=== PATIENT | female | born 1975 | race Caucasian/White ===

== ENCOUNTER 2018-07-13 20:16 | Emergency (ER) | payer SELFPAY ==
[~2018-07-13] VITALS: Ht 157.5 cm; Wt 117.9 kg
--- NOTE | 2018-07-13 20:35 | ED Respiratory ---
General Stated Complaint: SOA Source: patient, family (and sister) Exam Limitations: no limitations (ELIJAH SANTIAGO) History of Present Illness Date Seen by Provider: Jul 13, 2018 Time Seen by Provider: 20:25 Initial Comments The patient presents to ER by private conveyance with chief complaint of shortness of breath and wheezing. She has a history of asthma for which she intermittently uses her Ventolin inhaler. Today she used 4 times after her symptoms started in the last hour. Both of her 2 children have some upper respiratory viral symptoms. No one has been diagnosed with influenza. She's had no fevers chills nausea vomiting chest pain, diarrhea or constipation. She had her last menstrual period 2 weeks ago. Her ears do not feel full or underwater. Her throat is not sore. (ELIJAH SANTIAGO) Allergies and Home Medications Allergies Coded Allergies: azithromycin (Verified Adverse Reaction, Unknown, nausea vomiting, 07/13/18) vancomycin (Verified Adverse Reaction, Unknown, heart racing, 07/13/18) Home Medications Albuterol Sulfate 1 Puff Puff, 2 PUFF IH Q4H 1 PUFF = 90 MCG Prescribed by: SHANTA HILL on 07/13/182305 Benzonatate 100 Mg Capsule, 100 MG PO TID PRN for COUGH Prescribed by: SHANTA HILL on 07/13/182305 Prednisone 20 Mg Tab, 60 MG PO DAILY Prescribed by: SHANTA HILL on 07/13/182305 Patient Home Medication List Home Medication List Reviewed: Yes (SHANTA HILL DO) Review of Systems Review of Systems Constitutional: No fever EENTM: nose congestion Respiratory: cough, dyspnea on exertion, wheezing Cardiovascular: No chest pain (SHANTA HILL DO) Past Hhdxwcj-Mvzkqe-Rfwtwd Hx Patient Social History Recent Foreign Travel: No Contact w/Someone Who Travel: No (ELIJAH SANTIAGO) Physical Exam Vital Signs - First Documented 07/13/18 20:29 Temp 97.8 Pulse 98 Resp 16 B/P (MAP) 126/96 (106) Pulse Ox 99 (SHANTA HILL DO) Capillary Refill : (ELIJAH SANTIAGO) Height: '" Weight: lbs. oz. kg; BMI Method: (ELIJAH SANTIAGO) General Appearance: no apparent distress Respiratory: No respiratory distress, No decreased breath sounds, No accessory muscle use; wheezing Cardiovascular: normal peripheral pulses (SHANTA HILL DO) Progress/Results/Core Measures Suspected Sepsis SIRS Temperature: Pulse: Respiratory Rate: Blood Pressure / Mean: (ELIJAH SANTIAGO) Results/Orders My Orders Orders - SHANTA HILL DO Benzonatate Capsule (Tessalon Perles) (07/13/18 22:00) Prednisone Tablet (Deltasone Tablet) (07/13/18 22:00) Ibuprofen Tablet (Motrin Tablet) (07/13/18 22:00) Hydrocodone/Apap 5/325 Tablet (Lortab 5 (07/13/18 22:00) Albuterol/Ipra Inhalation Soln (Duoneb I (07/13/18 22:00) Svn Small Volume Nebulizer (07/13/18 21:46) (SHANTA HILL DO) Medications Given in ED Current Medications Medications Dose Ordered Sig/Jose Luis Route Start Time Stop Time Status Last Admin Dose Admin Acetaminophen/ Hydrocodone Bitart 1 tab ONCE ONCE PO 07/13/18 22:00 07/13/18 22:01 DC 07/13/18 22:07 1 TAB Albuterol/ Ipratropium 3 ml ONCE ONCE INH 07/13/18 20:45 07/13/18 20:46 DC 07/13/18 20:39 3 ML Ibuprofen 600 mg ONCE ONCE PO 07/13/18 22:00 07/13/18 22:01 DC 07/13/18 22:07 600 MG Prednisone 60 mg ONCE ONCE PO 07/13/18 22:00 07/13/18 22:01 DC 07/13/18 22:07 60 MG (SHANTA HILL DO) Vital Signs/I&O 07/13/18 20:29 Temp 97.8 Pulse 98 Resp 16 B/P (MAP) 126/96 (106) Pulse Ox 99 (SHANTA HILL DO) Vital Signs/I&O Capillary Refill : (ELIJAH SANTIAGO) Progress Note : Progress Note Patient's with persistent wheezing on my examination sided another breathing treatment in addition to steroids Tessalon ibuprofen Burtrum for her rib pain. On reexamination sure aeration of her lungs is much improved and she is breathing with no respiratory distress at all. Repeat vital signs are normal as well. Given patient appears well. Vital signs: Physical exam workup she will be discharged in stable condition. Follow up primary care provider within 2 days and come back to the ED sooner if worsening pain shortness of breath with additional concerns. (SHANTA HILL DO) Transfer of Care Transfer of Care Time: 21:16 Care transferred to: Emily (ELIJAH SANTIAGO) Departure Impression Primary Impression: Asthma exacerbation Disposition: 01 HOME, SELF-CARE Condition: Stable Departure-Patient Inst. Decision time for Depature: 23:04 (SHANTA HILL DO) Scripts Albuterol Sulfate (PROAIR HFA) 1 Puff Puff 2 PUFF IH Q4H, #1 INHALER 1 PUFF = 90 MCG Prov: SHANTA HILL DO 07/13/18 Prednisone (Prednisone) 20 Mg Tab 60 MG PO DAILY for 4 Days, #4 TAB 0 Refills Prov: SHANTA HILL DO 07/13/18 Benzonatate (TESSALON PERLES) 100 Mg Capsule 100 MG PO TID PRN for COUGH, #15 CAP Prov: SHANTA HILL DO 07/13/18 ELIJAH SANTIAGO Jul 13, 2018 20:35 SHANTA HILL DO Jul 13, 2018 23:04
[2018-07-13] MEDS ORDERED: RT-ALBUTEROL/IPRATROPIUM 3 ML (DUONEB) VIAL INH ONE ×2 (20:45→22:00)
[2018-07-13] MEDS ORDERED: IBUPROFEN 600 MG (MOTRIN) TAB PO ONE (22:00)
[2018-07-13] MEDS ORDERED: predniSONE 20 MG TAB PO ONE (22:00)
[2018-07-13] MEDS ORDERED: HYDROcodone/APAP 5 MG/325 MG (LORTAB) TAB PO ONE (22:00)
[2018-07-13] MEDS ORDERED: BENZONATATE 100 MG (TESSALON) CAPSULE PO SCH (22:00)
[2018-07-13] MEDS ORDERED: RT-ALBUINH IH (23:06)
[2018-07-13] MEDS ORDERED: PRD20T PO (23:06)
[2018-07-13] MEDS ORDERED: BENZ100C18 PO (23:06)
[2018-07-13 23:19] VITALS: BP 130/88
== END 2018-07-13 23:19 | disposition home or self-care (01) ==
LOC: ER FS 20:22
DX: J45.901 Unspecified asthma with (acute) exacerbation (principal); Z88.1 Allergy status to other antibiotic agents; Z79.51 Long term (current) use of inhaled steroids; Z79.52 Long term (current) use of systemic steroids

== ENCOUNTER 2019-10-28 19:39 | Emergency (ER) | payer SELFPAY ==
[~2019-10-28] VITALS: Ht 157 cm; Wt 124.0 kg
[~2019-10-28 19:39] MED LIST: BENZ100C18 PO; PRD20T PO; RT-ALBUINH IH
--- NOTE | 2019-10-28 19:58 | ED Upper Extremity ---
General Chief Complaint: Upper Extremity Stated Complaint: NECK/SHOULDER/ARM PAIN,FALL Source: patient, RN/MD, RN notes reviewed Exam Limitations: no limitations History of Present Illness Date Seen by Provider: Oct 28, 2019 Time Seen by Provider: 19:50 Initial Comments This patient is a 44-year-old female presents to the emergency department with right shoulder pain hurting up into her neck. Patient states she had a fall yesterday tripped over her dog and arm bent back and popped. Patient states ever since that she's been having significant pain in her trapezius muscle to her right shoulder. Patient states very uncomfortable. We'll do medical evaluation treatment is needed Onset: yesterday Pain/Injury Location: right shoulder Method of Injury: fell Modifying Factors: Improves With Movement Allergies and Home Medications Allergies Coded Allergies: morphine (Verified Allergy, Unknown, 10/28/19) azithromycin (Verified Adverse Reaction, Unknown, nausea vomiting, 07/13/18) vancomycin (Verified Adverse Reaction, Unknown, heart racing, 07/13/18) Home Medications Albuterol Sulfate 1 Puff Puff, 2 PUFF IH Q4H 1 PUFF = 90 MCG Prescribed by: SHANTA HILL on 07/13/182305 Benzonatate 100 Mg Capsule, 100 MG PO TID PRN for COUGH Prescribed by: SHANTA HILL on 07/13/182305 Prednisone 20 Mg Tab, 60 MG PO DAILY Prescribed by: SHANTA HILL on 07/13/182305 Patient Home Medication List Home Medication List Reviewed: Yes Review of Systems Constitutional: No no symptoms reported, No see HPI, No chills, No diaphoresis, No dizziness, No fever, No malaise, No weakness, No weight gain, No weight loss, No other EENTM: No see HPI, No no symptoms reported, No ear discharge, No hearing loss, No ear pain, No blurred vision, No double vision, No eye pain, No tearing, No vision loss, No dental problems, No hoarseness, No mouth pain, No mouth swelling, No epistaxis, No nose congestion, No nose pain, No throat pain, No throat swelling, No other Respiratory: No no symptoms reported, No see HPI, No cough, No dyspnea on exertion, No hemoptysis, No orthopnea, No phlegm, No short of breath, No stridor, No wheezing, No other Cardiovascular: No no symptoms reported, No see HPI, No chest pain, No edema, No Hx of Intervention, No palpitations, No syncope, No vascular heart diseas, No other Gastrointestinal: No RUQ, No LUQ, No RLQ, No LLQ, No no symptoms reported, No see HPI, No abdominal pain, No constipation, No diarrhea, No dysphagia, No hematemesis, No heartburn, No jaundice, No loss of appetite, No melena, No nausea, No vomiting, No other Musculoskeletal: No no symptoms reported; see HPI; No back pain, No gout; joint pain; No joint swelling; muscle pain, muscle stiffness; No muscle cramps, No muscle twitching, No muscle weakness, No neck pain, No other Skin: No no symptoms reported, No see HPI, No change in color, No change in hair/nails, No dryness, No hx of skin cancer, No lesions, No lumps, No pruritus, No rash, No other All Other Systems Reviewed Negative Unless Noted: Yes Past Gjfevyd-Sxcdfz-Szahjs Hx Patient Social History Alcohol Use: Denies Use Recreational Drug Use: No Smoking Status: Former Smoker 2nd Hand Smoke Exposure: No Recent Foreign Travel: No Contact w/Someone Who Travel: No Recent Hopitalizations: No Physical Abuse: No Sexual Abuse: No Past Medical History Surgeries: Yes Appendectomy, Cardiac, Gallbladder, Tubal Ligation Respiratory: No Cardiac: No Neurological: No Genitourinary: No Gastrointestinal: No Musculoskeletal: No Endocrine: Yes Diabetes, Non-Insulin dep HEENT: No Cancer: No Psychosocial: No Integumentary: No Blood Disorders: No Physical Exam Vital Signs Vital Signs - First Documented 10/28/19 19:42 Temp 36.9 Pulse 99 Resp 16 Pulse Ox 98 O2 Delivery Room Air Capillary Refill : Height, Weight, BMI Height: 5'2.00" Weight: 260lbs. oz. 117.220856cm; BMI Method:Stated General Appearance: WD/WN, no apparent distress HEENT: PERRL/EOMI, normal ENT inspection, TMs normal, pharynx normal Neck: non-tender, full range of motion, supple, normal inspection Cardiovascular: normal peripheral pulses, regular rate, rhythm, no edema, no gallop, no JVD, no murmur Respiratory: chest non-tender, lungs clear, normal breath sounds, no respiratory distress, no accessory muscle use Back: normal inspection, no CVA tenderness, no vertebral tenderness, CVA tenderness (R), CVA tenderness (L) Shoulder: limited ROM, pain Skin: normal color, warm/dry Progress/Results/Core Measures Results/Orders My Orders Orders - POLINA MONROE MD Shoulder 3 View Right (10/28/19 19:54) Orphenadrine Inj (Ed Only) (Norflex Inje (10/28/19 20:00) Medications Given in ED Current Medications Medications Dose Ordered Sig/Jose Luis Route Start Time Stop Time Status Last Admin Dose Admin Orphenadrine Citrate 60 mg ONCE ONCE IM 10/28/19 20:00 10/28/19 20:01 DC 10/28/19 20:18 60 MG Vital Signs/I&O 10/28/19 19:42 Temp 36.9 Pulse 99 Resp 16 B/P (MAP) Pulse Ox 98 O2 Delivery Room Air Progress Progress Note : Time: 20:24 Progress Note Negative evaluation by x-ray. Patient was given a shot of 60 mg of Norflex. Did discuss at length with patient about muscle spasm in her trapezius muscle. Patient is to alternate heat and ice, Motrin as needed for pain we'll give prescription of Flexeril for the next 2-3 days. Follow-up with PCP in 2-3 days if not improved. Departure Impression Primary Impression: Muscle spasm Disposition: HOME, SELF-CARE Condition: Stable Departure-Patient Inst. Decision time for Depature: 20:25 Referrals: NO,LOCAL PHYSICIAN (PCP) Primary Care Physician Patient Instructions: Muscle Strain (DC) Add. Discharge Instructions: Patient is to alternate heat and ice, Motrin as needed for pain we'll give prescription of Flexeril for the next 2-3 days. Follow-up with PCP in 2-3 days if not improved. All discharge instructions reviewed with patient and/or family. Voiced understanding. Scripts Cyclobenzaprine HCl (Cyclobenzaprine HCl) 10 Mg Tablet 10 MG PO TID, #10 TAB 0 Refills Prov: POLINA MONROE MD 10/28/19 Diclofenac Sodium (Diclofenac Sodium) 75 Mg Tablet. 75 MG PO BID for 10 Days, #20 TAB 0 Refills Prov: POLINA MONROE MD 10/28/19 POLINA MONROE MD Oct 28, 2019 19:57
[2019-10-28] MEDS ORDERED: ORPHENADRINE 60 MG/2 ML (NORFLEX) AMP (ED ONLY) IM ONE (20:00)
[2019-10-28] MEDS ORDERED: DICL75TA2 PO (20:27)
[2019-10-28] MEDS ORDERED: CYCL10TA9 PO (20:27)
[2019-10-28 20:30] VITALS: BP 137/77
--- NOTE | 2019-10-28 20:33 | Diagnostic Imaging Report ---
INDICATION: Tripped and fell yesterday EXAMINATION: Right shoulder 10/28/2019 3 views of the shoulder FINDINGS: There is no evidence for an acute fracture or dislocation. The joint spaces are well maintained. There is no significant soft tissue swelling. IMPRESSION: No acute process. Dictated by: Dictated on workstation # [id number]
== END 2019-10-28 20:31 | disposition home or self-care (01) ==
LOC: EDUNIT# 19:39 → ER FS 19:40
DX: M62.838 Other muscle spasm (principal); Z88.5 Allergy status to narcotic agent; Z79.52 Long term (current) use of systemic steroids; Z87.891 Personal history of nicotine dependence; Z88.1 Allergy status to other antibiotic agents; W01.0XXA Fall on same level from slipping, tripping and stumbling without subsequent striking against object, initial encounter
CPT/HCPCS: 73030; 96372

== ENCOUNTER 2019-11-18 15:54 | Emergency (ER) | payer SELFPAY ==
[~2019-11-18] VITALS: Ht 165 cm; Wt 124.1 kg
[~2019-11-18 15:54] MED LIST changes: +CYCL10TA9 PO; +DICL75TA2 PO
[2019-11-18] MEDS ORDERED: NS IV 1000 ML 1,000 ML IV STA (16:12)
[2019-11-18] MEDS ORDERED: ONDANSETRON 4 MG/2 ML (SDV) Z0FRAN IVP ONE ×2 (16:15→17:00)
[2019-11-18 16:16] VITALS: BP_SYST 118; BP_SYST 127; BP_SYST 135; BP_DIAS 60; BP_DIAS 62; BP_DIAS 64
--- NOTE | 2019-11-18 16:16 | ED General ---
General Chief Complaint: Dizziness/Syncope Stated Complaint: NAUSEA,WEAKNESS Nursing Triage Note: Patient reports she does not having air conditioning at home. States she was cleaning her house when she became lightheaded and her vision began getting "snowy." She states she is DM II, states her blood sugar was 410 this morning, states she has been trying to keep up with drinking fluids and eating ok. Nursing Sepsis Screen: No Definite Risk Source of Information: Patient, Old Records, RN/MD History of Present Illness Date Seen by Provider: Nov 18, 2019 Time Seen by Provider: 16:00 Initial Comments This patient is a 44-year-old female presents to the emergency department with complaint of dizziness. Patient states been really hot and she has a home and does not have any central air. No air conditioning. 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 Air-conditioning needed. Patient states that she's been trying to drink plenty of fluids but has not been doing well is complaints of dizziness. Patient states she feels like she might pass out she stands up too quickly. We'll do medical evaluation treatment is needed. Patient does have type 2 diabetes that she did have an elevated glucose this morning of 400. However on arrival patient's point of care glucose is 127. Timing/Duration: 4-6 Hours Severity: Mild Associated Systoms: No Denies Symptoms, No Chest Pain, No Cough, No Diaphoresis, No Fever/Chills, No Headaches, No Loss of Appetite, No Malaise, No Nausea/Vomiting, No Rash, No Seizure, No Shortness of Air, No Syncope, No Weakness, No Other Allergies and Home Medications Allergies Coded Allergies: morphine (Verified Allergy, Unknown, 10/28/19) azithromycin (Verified Adverse Reaction, Unknown, nausea vomiting, 07/13/18) vancomycin (Verified Adverse Reaction, Unknown, heart racing, 07/13/18) Home Medications Albuterol Sulfate 1 Puff Puff, 2 PUFF IH Q4H 1 PUFF = 90 MCG Prescribed by: SHANTA HILL on 07/13/182305 Benzonatate 100 Mg Capsule, 100 MG PO TID PRN for COUGH Prescribed by: SHANTA HILL on 07/13/182305 Cyclobenzaprine HCl 10 Mg Tablet, 10 MG PO TID Prescribed by: POLINA MONROE on 10/28/192026 Diclofenac Sodium 75 Mg Tablet.dr, 75 MG PO BID Prescribed by: POLINA MONROE on 10/28/192026 Prednisone 20 Mg Tab, 60 MG PO DAILY Prescribed by: SHANTA HILL on 07/13/18 7530 Patient Home Medication List Home Medication List Reviewed: Yes Review of Systems Review of Systems Constitutional: No no symptoms reported; see HPI; No chills, No diaphoresis; dizziness; No fever, No malaise, No weakness, No weight gain, No weight loss, No other EENTM: No see HPI, No no symptoms reported, No ear discharge, No hearing loss, No ear pain, No blurred vision, No double vision, No eye pain, No tearing, No vision loss, No dental problems, No hoarseness, No mouth pain, No mouth swelling, No epistaxis, No nose congestion, No nose pain, No throat pain, No throat swelling, No other Respiratory: No no symptoms reported, No see HPI, No cough, No dyspnea on exertion, No hemoptysis, No orthopnea, No phlegm, No short of breath, No stridor, No wheezing, No other Cardiovascular: No no symptoms reported, No see HPI, No chest pain, No edema, No Hx of Intervention, No palpitations, No syncope, No vascular heart diseas, No other Gastrointestinal: No RUQ, No LUQ, No RLQ, No LLQ, No no symptoms reported, No see HPI, No abdominal pain, No constipation, No diarrhea, No dysphagia, No hematemesis, No heartburn, No jaundice, No loss of appetite, No melena, No nausea, No vomiting, No other Genitourinary: No no symptoms reported, No see HPI, No decreased output, No discharge, No dysuria, No frequency, No hematuria, No hesitancy, No incontinence, No nocturia, No pain, No other Musculoskeletal: No no symptoms reported, No see HPI, No back pain, No gout, No joint pain, No joint swelling, No muscle pain, No muscle stiffness, No muscle cramps, No muscle twitching, No muscle weakness, No neck pain, No other Skin: No no symptoms reported, No see HPI, No change in color, No change in hair/nails, No dryness, No hx of skin cancer, No lesions, No lumps, No pruritus, No rash, No other Psychiatric/Neurological: Denies No Symptoms Reported, Denies See HPI, Denies Anxiety, Denies Depressed, Denies Emotional Problems, Denies Headache, Denies Numbness, Denies Paresthesia, Denies Pre-Existing Deficit, Denies Seizure, Denies Tingling, Denies Tremors, Denies Weakness, Denies Other All Other Systems Reviewed Negative Unless Noted: Yes Past Vevludx-Xafhaz-Fcwhak Hx Patient Social History 2nd Hand Smoke Exposure: No Recent Foreign Travel: No Contact w/Someone Who Travel: No Recent Infectious Disease Expo: No Recent Hopitalizations: No Past Medical History Surgeries: Yes Appendectomy, Cardiac, Gallbladder, Tubal Ligation Respiratory: No Cardiac: No Neurological: No Genitourinary: No Gastrointestinal: No Musculoskeletal: No Endocrine: Yes Diabetes, Non-Insulin dep HEENT: No Cancer: No Psychosocial: No Integumentary: No Blood Disorders: No Physical Exam Vital Signs Vital Signs - First Documented 11/18/19 16:07 Temp 36.9 Pulse 88 Resp 20 B/P (MAP) 135/64 (87) Pulse Ox 97 O2 Delivery Room Air Capillary Refill : Less Than 3 Seconds Height, Weight, BMI Height: 5'2.00" Weight: 260lbs. oz. 117.851703li; 45.00 BMI Method:Stated General Appearance: No Apparent Distress, WD/WN HEENT: PERRL/EOMI, TMs Normal, Normal ENT Inspection, Pharynx Normal Respiratory: Chest Non Tender, Lungs Clear, Normal Breath Sounds, No Accessory Muscle Use, No Respiratory Distress Cardiovascular: Regular Rate, Rhythm, No Edema, No Gallop, No JVD, No Murmur, Normal Peripheral Pulses Gastrointestinal: Normal Bowel Sounds, No Organomegaly, No Pulsatile Mass, Non Tender, Soft Extremity: Normal Capillary Refill, Normal Inspection, Normal Range of Motion, Non Tender, No Calf Tenderness, No Pedal Edema Neurologic/Psychiatric: Alert, Oriented x3, No Motor/Sensory Deficits, Normal Mood/Affect Skin: Normal Color, Warm/Dry Progress/Results/Core Measures Suspected Sepsis Recent Fever Within 48 Hours: No Infection Criteria Present: None New/Unexplained Altered Menta: No Sepsis Screen: No Definite Risk SIRS Temperature: Pulse: 88 Respiratory Rate: 20 Laboratory Tests 11/18/19 16:20: White Blood Count 10.7 Blood Pressure 135 /64 Mean: 87 Laboratory Tests 7/14/20 16:20: Creatinine 1.02, Platelet Count 261 Results/Orders Lab Results Laboratory Tests Test 11/18/19 16:00 11/18/19 16:12 11/18/19 16:20 Range/Units Urine Color YELLOW Urine Clarity SLT CLOUDY Urine pH 6.0 5-9 Urine Specific [place] >=1.030 1.016-1.022 Urine Protein NEGATIVE NEGATIVE Urine Glucose (UA) NEGATIVE NEGATIVE Urine Ketones NEGATIVE NEGATIVE Urine Nitrite NEGATIVE NEGATIVE Urine Bilirubin NEGATIVE NEGATIVE Urine Urobilinogen 1.0 < = 1.0 MG/DL Urine Leukocyte Esterase NEGATIVE NEGATIVE Urine RBC (Auto) NEGATIVE NEGATIVE Urine RBC NONE /HPF Urine WBC 2-5 /HPF Urine Squamous Epithelial Cells 2-5 /HPF Urine Crystals NONE /LPF Urine Bacteria TRACE /HPF Urine Casts NONE /LPF Urine Mucus MODERATE H /LPF Urine Culture Indicated NO Glucometer 127 H 70-110 MG/DL White Blood Count 10.7 4.3-11.0 10^3/uL Red Blood Count 5.00 4.35-5.85 10^6/uL Hemoglobin 13.1 11.5-16.0 G/DL Hematocrit 42 35-52 % Mean Corpuscular Volume 84 80-99 FL Mean Corpuscular Hemoglobin 26 25-34 PG Mean Corpuscular Hemoglobin Concent 31 L 32-36 G/DL Red Cell Distribution Width 14.2 10.0-14.5 % Platelet Count 261 130-400 10^3/uL Mean Platelet Volume 10.9 H 7.4-10.4 FL Neutrophils (%) (Auto) 73 42-75 % Lymphocytes (%) (Auto) 19 12-44 % Monocytes (%) (Auto) 5 0-12 % Eosinophils (%) (Auto) 3 0-10 % Basophils (%) (Auto) 0 0-10 % Neutrophils # (Auto) 7.8 1.8-7.8 X 10^3 Lymphocytes # (Auto) 2.1 1.0-4.0 X 10^3 Monocytes # (Auto) 0.5 0.0-1.0 X 10^3 Eosinophils # (Auto) 0.3 0.0-0.3 10^3/uL Basophils # (Auto) 0.0 0.0-0.1 10^3/uL Sodium Level 138 135-145 MMOL/L Potassium Level 3.7 3.6-5.0 MMOL/L Chloride Level 102 98-107 MMOL/L Carbon Dioxide Level 26 21-32 MMOL/L Anion Gap 10 5-14 MMOL/L Blood Urea Nitrogen 10 7-18 MG/DL Creatinine 1.02 0.60-1.30 MG/DL Estimat Glomerular Filtration Rate 59 BUN/Creatinine Ratio 10 Glucose Level 123 H 70-105 MG/DL Calcium Level 9.1 8.5-10.1 MG/DL My Orders Orders - POLINA MONROE MD Basic Metabolic Panel (11/18/19 16:12) Cbc With Automated Diff (11/18/19 16:12) Urinalysis (11/18/19 16:12) Ekg Tracing (11/18/19 16:12) Ed Iv/Invasive Line Start (11/18/19 16:12) Orthostatic Vital Signs (Adult (11/18/19 16:12) Ns Iv 1000 Ml (Sodium Chloride 0.9%) (11/18/19 16:12) Ondansetron Injection (Zofran Injectio (11/18/19 16:15) Ondansetron Injection (Zofran Injectio (11/18/19 17:00) Medications Given in ED Current Medications Medications Dose Ordered Sig/Jose Luis Route Start Time Stop Time Status Last Admin Dose Admin Ondansetron HCl 4 mg ONCE ONCE IVP 11/18/19 16:15 11/18/19 16:16 DC 11/18/19 16:28 4 MG Ondansetron HCl 4 mg ONCE ONCE IVP 11/18/19 17:00 11/18/19 17:01 DC 11/18/19 17:00 4 MG Vital Signs/I&O 11/18/19 11/18/19 16:07 16:16 Temp 36.9 Pulse 88 83 82 87 Resp 20 B/P (MAP) 135/64 (87) 135/64 (87) 127/60 (82) 118/62 (80) Pulse Ox 97 O2 Delivery Room Air Capillary Refill : Less Than 3 Seconds Blood Pressure Mean: 87 Progress Note : Time: 17:04 Progress Note Patient is much improved after IV fluid bolus. Encourage by mouth fluids. Tylenol Motrin as needed for pain. Zofran as needed for nausea. Follow-up with PCP in 2-3 days ECG Initial ECG Impression Date: Nov 18, 2019 Initial ECG Impression Time: 16:21 Initial ECG Rate: 87 Initial ECG Rhythm: Normal Sinus Initial ECG Intervals: Normal Initial ECG Impression: Nonspecific Changes Comment Sinus rhythm with a heart rate of [address] changes otherwise normal EKG Departure Impression Primary Impression: Dizziness Disposition: 01 HOME, SELF-CARE Condition: Stable Departure-Patient Inst. Decision time for Depature: 17:05 Referrals: NO,LOCAL PHYSICIAN (PCP) Primary Care Physician Patient Instructions: Heat Exhaustion and Heat Stroke (DC) Add. Discharge Instructions: Encourage by mouth fluids. Tylenol Motrin as needed for pain. Zofran as needed for nausea. Follow-up with PCP in 2-3 days All discharge instructions reviewed with patient and/or family. Voiced underst anding. Scripts Ondansetron (Ondansetron Odt) 4 Mg Tab.rapdis 4 MG PO BID, #10 TAB 0 Refills Prov: POLINA MONROE MD 11/18/19 POLINA MONROE MD Nov 18, 2019 16:16
[2019-11-18 16:31] LABS: CLARITY,URINE SLT CLOUDY; COLOR,URINE YELLOW; GLUCOSE, URINE (UA) NEGATIVE (NEGATIVE); PROTEIN,URINE NEGATIVE (NEGATIVE)
[2019-11-18 16:32] LABS: BACTERIA,URINE TRACE /HPF; BILIRUBIN,URINE NEGATIVE (NEGATIVE); KETONES,URINE NEGATIVE (NEGATIVE); LEUKOCYTE ESTERASE ,URINE NEGATIVE (NEGATIVE); NITRITE,URINE NEGATIVE (NEGATIVE)
[2019-11-18 16:38] LABS: HEMATOCRIT 42 % (35-52); HEMOGLOBIN 13.1 G/DL (11.5-16.0); MEAN CORPUSCULAR HEMOGLOBIN 26 PG (25-34); MEAN CORPUSCULAR HGB CONC 31 G/DL (32-36); MEAN CORPUSCULAR VOLUME 84 FL (80-99); MEAN PLATELET VOLUME 10.9 FL (7.4-10.4); PLATELET COUNT 261 10^3/uL (130-400); RED CELL DISTRIBUTION WIDTH 14.2 % (10.0-14.5); WHITE BLOOD COUNT 10.7 10^3/uL (4.3-11.0)
[2019-11-18 16:39] LABS: BASOPHILS % (AUTO) 0 % (0-10); EOSINOPHILS # (AUTO) 0.3 10^3/uL (0.0-0.3); EOSINOPHILS % (AUTO) 3 % (0-10); LYMPHOCYTES # (AUTO) 2.1 X 10^3 (1.0-4.0); LYMPHOCYTES % (AUTO) 19 % (12-44); MONOCYTES # (AUTO) 0.5 X 10^3 (0.0-1.0); MONOCYTES % (AUTO) 5 % (0-12); NEUTROPHILS # (AUTO) 7.8 X 10^3 (1.8-7.8); NEUTROPHILS % (AUTO) 73 % (42-75)
[2019-11-18 16:55] LABS: CALCIUM 9.1 MG/DL (8.5-10.1); CREATININE SERUM 1.02 MG/DL (0.60-1.30); POTASSIUM 3.7 MMOL/L (3.6-5.0)
[2019-11-18] MEDS ORDERED: ONDA4TAB11 PO (17:06)
[2019-11-18 17:20] VITALS: BP 123/58
--- OUTSIDE RECORDS SUMMARY | 2019-11-18 20:59 | XMS REPORT | Continuity of Care Document ---
Author Organization Unknown Address Unknown Phone Unavailable Allergies Active Description Code Type Severity Reaction Onset Reported/Identified Relationship to Patient Clinical Status Yes azithromycin [id number] Drug Allergy Unknown nausea vomiting 07/13/2018 Yes vancomycin [id number] Drug Allerg y Unknown heart racing 07/13/2018 Yes morphine [id number] Drug Allergy Unknown N/A 10/28/2019 Medications There is no data. Problems Date Dx Coded Attending Type Code Diagnosis Diagnosed By 07/13/2018 SHANTA HILL DO, Ot J45.901 UNSPECIFIED ASTHMA WITH (ACUTE) EXACERBA 07/13/2018 SHANTA HILL DO, Ot R06.02 SHORTNESS OF BREATH 07/13/2018 SHANTA HILL DO, Ot Z79.51 SENIOR CARE (CURRENT) USE OF INHALED STERO 07/13/2018 SHANTA HILL DO, Ot Z79.52 SENIOR CARE (CURRENT) USE OF SYSTEMIC STER 07/13/2018 SHANTA HILL DO, Ot Z88 .1 ALLERGY STATUS TO OTHER ANTIBIOTIC AGENT 07/16/2018 SHANTA HILL DO, Ot J45.901 UNSPECIFIED ASTHMA WITH (ACUTE) EXACERBA 07/16/2018 SHANTA HILL DO, Ot R06.02 SHORTNESS OF BREATH 07/16/2018 SHANTA HILL DO, Ot Z79.51 CONCRETE BLOCK MASON (CURRENT) USE OF INHALED STERO 07/16/2018 SHANTA HILL DO, Ot Z79.52 SENIOR CARE (CURRENT) USE OF SYSTEMIC STER 07/16/2018 SHANTA HILL DO, Ot Z88 .1 ALLERGY STATUS TO OTHER ANTIBIOTIC AGENT 10/31/2019 POLINA MONROE MD Ot M25.511 PAIN IN RIGHT SHOULDER 10/31/2019 POLINA MONROE MD, Ot M62.838 OTHER MUSCLE SPASM 10/31/2019 POLINA MONROE MD Ot W01.0XXA FALL SAME LEV FROM SLIP/TRIP W/O STRIKE 10/31/2019 POLINA MONROE MD, Ot Z79.52 SENIOR CARE (CURRENT) USE OF SYSTEMIC STER 10/31/2019 POLINA MONROE MD, Ot Z87.891 PERSONAL HISTORY OF NICOTINE DEPENDENCE 10/31/2019 POLINA MONROE MD Ot Z88.1 ALLERGY STATUS TO OTHER ANTIBIOTIC AGENT 10/31/2019 POLINA MONROE MD, Ot Z88.5 ALLERGY STATUS TO NARCOTIC AGENT STATUS Procedures There is no data. Results There is no data. Encounters ACCT No. Visit Date/Time Discharge Status Pt. Type Provider Facility Loc./Unit Complaint [id number] 11/18/2019 15:56:00 020 17:20:00 DIS Emergency POLINA MONROE MD [facility] FS NAUSEA,WEAKNESS [id number] 10/28/2019 19:40:00 020 20:31:00 DIS Outpatient POLINA MONROE MD [facility] FS NECK/SHOULDER/ARM PAIN, FALL [id number] 07/13/2018 20:22:00 019 23:19:00 DIS Emergency SHANTA HILL DO [facility] FS SOA
== END 2019-11-18 17:20 | disposition home or self-care (01) ==
LOC: EDUNIT# 15:54 → ER FS 15:56
DX: R42 Dizziness and giddiness (principal); Z88.5 Allergy status to narcotic agent; Z88.1 Allergy status to other antibiotic agents; Z79.52 Long term (current) use of systemic steroids
CPT/HCPCS: 36415; 80048; 81000; 82962; 85025; 93005

== ENCOUNTER 2020-06-10 02:17 | Emergency (ER) | payer OTHER ==
[~2020-06-10] VITALS: Ht 157.5 cm; Wt 121.6 kg
[~2020-06-10 02:17] MED LIST changes: +ONDA4TAB11 PO
[2020-06-10 02:25] VITALS: BP 143/65
[2020-06-10] MEDS ORDERED: ONDANSETRON 4 MG (ZOFRAN) ORAL DISSOLVE TAB PO STA (02:47)
[2020-06-10] MEDS ORDERED: PROC-1 PO (02:52)
[2020-06-10] MEDS ORDERED: ACHD5005 PO (02:52)
[2020-06-10] MEDS ORDERED: PRD20T PO (02:52)
--- NOTE | 2020-06-10 02:53 | ED General ---
General Chief Complaint: Head/Cervical Problems Stated Complaint: HEADACHE Nursing Triage Note: PT AMBULATE TO ROOM FS02 WITH C/O HEADACHE RELATED TO HER CATARACTS AND OCULAR NEURITIS. PT STATES THAT SHE HAS TAKEN TYLENOL AND IBUPROFEN WITHOUT RELIEF. Nursing Sepsis Screen: No Definite Risk History of Present Illness Date Seen by Provider: Jun 10, 2020 Time Seen by Provider: 02:30 Initial Comments Patient is a 44-year-old female with history of chronic headaches and optic neuritis who presents with bilateral retro-orbital high pain. Symptoms are described as sharp and are associated with change in vision and nausea and vomiting. Patient states she has had episodic headaches for the past several months and she is waiting to see a neurologist. She states she only takes Tylenol or ibuprofen for the headaches but this evening pain was more severe. She denies extremity weakness or loss of sensation. No recent illness. No other symptoms or complaints. Timing/Duration: 12 Hours Severity: Moderate Modifying Factors: improves with Medication, improves with Other Associated Systoms: Other Allergies and Home Medications Allergies Coded Allergies: morphine (Verified Allergy, Unknown, 10/28/19) azithromycin (Verified Adverse Reaction, Unknown, nausea vomiting, 07/13/18) vancomycin (Verified Adverse Reaction, Unknown, heart racing, 07/13/18) Home Medications Albuterol Sulfate 1 Puff Puff, 2 PUFF IH Q4H 1 PUFF = 90 MCG Prescribed by: SHANTA HILL on 07/13/182305 Benzonatate 100 Mg Capsule, 100 MG PO TID PRN for COUGH Prescribed by: SHANTA HILL on 07/13/182305 Cyclobenzaprine HCl 10 Mg Tablet, 10 MG PO TID Prescribed by: POLINA MONROE on 10/28/192026 Diclofenac Sodium 75 Mg Tablet.dr, 75 MG PO BID Prescribed by: POLINA MONROE on 10/28/192026 Hydrocodone/Acetaminophen 1 Each Tablet, 1 TAB PO Q4H PRN for PAIN-MODERATE (5- 7) Prescribed by: MARICRUZ ALMARAZ on 06/10/20 025 Ondansetron 4 Mg Tab.rapdis, 4 MG PO BID Prescribed by: POLINA MONROE on 11/18/19 170 Prednisone 20 Mg Tab, 60 MG PO DAILY Prescribed by: SHANTA HILL on 07/13/182305 Prednisone 20 Mg Tab, 40 MG PO DAILY Prescribed by: MARICRUZ ALMARAZ on 06/10/20251 Prochlorperazine Maleate 10 Mg Tablet, 10 MG PO Q8H Prescribed by: MARICRUZ ALMARAZ on 06/10/20251 Patient Home Medication List Home Medication List Reviewed: Yes Review of Systems Review of Systems Constitutional: see HPI Respiratory: see HPI Cardiovascular: see HPI Musculoskeletal: see HPI Skin: see HPI Psychiatric/Neurological: See HPI Hematologic/Lymphatic: See HPI Immunological/Allergic: see HPI All Other Systems Reviewed Negative Unless Noted: Yes Past Ligaiki-Bocwqz-Baethh Hx Past Med/Social Hx: Reviewed Nursing Past Med/Soc Hx Patient Social History Alcohol Use: Denies Use Smoking Status: Never a Smoker 2nd Hand Smoke Exposure: No Recent Infectious Disease Expo: No Recent Hopitalizations: No Seasonal Allergies Seasonal Allergies: No Past Medical History Surgeries: Yes Appendectomy, Cardiac, Gallbladder, Tubal Ligation Respiratory: Yes Asthma Cardiac: Yes (mitral valve prolapse) Neurological: No Genitourinary: No Gastrointestinal: No Musculoskeletal: No Endocrine: Yes Diabetes, Non-Insulin dep HEENT: Yes Cataract Loss of Vision: Bilateral Hearing Impairment: Denies Cancer: No Psychosocial: Yes Anxiety Integumentary: No Blood Disorders: No Physical Exam Vital Signs Vital Signs - First Documented 06/10/20 02:25 Temp 36.5 Pulse 69 Resp 17 B/P (MAP) 143/65 (91) O2 Delivery Room Air Capillary Refill : Less Than 3 Seconds Height, Weight, BMI Height: 5'2.00" Weight: 260lbs. oz. 117.079678rw; 49.00 BMI Method:Stated General Appearance: Moderate Distress Eyes: Bilateral Eye Normal Inspection, Bilateral Eye PERRL, Bilateral Eye EOMI HEENT: PERRL/EOMI, Normal ENT Inspection, Pharynx Normal, Other (Light sensitivity.) Respiratory: Lungs Clear Cardiovascular: Regular Rate, Rhythm Gastrointestinal: Non Tender Neurologic/Psychiatric: Alert, Oriented x3, No Motor/Sensory Deficits, warehouse shipping receiving clerk II- XII Norm as Tested Skin: Normal Color Focused Exam Sepsis Stage: Ruled Out Progress/Results/Core Measures Suspected Sepsis Recent Fever Within 48 Hours: No Infection Criteria Present: None New/Unexplained Altered Menta: No Sepsis Screen: No Definite Risk SIRS Temperature: Pulse: 69 Respiratory Rate: 17 Blood Pressure 143 /65 Mean: 91 Results/Orders My Orders Orders - MARICRUZ ALMARAZ DO Ondansetron Oral Dissolve Tab (Zofran (2/4/21 02:47) Prednisone Tablet (Deltasone Tablet) (06/10/20 03:00) Hydrocodone/Apap 5/325 Tablet (Lortab 5 (06/10/20 03:00) Medications Given in ED Current Medications Medications Dose Ordered Sig/Jose Luis Route Start Time Stop Time Status Last Admin Dose Admin Acetaminophen/ Hydrocodone Bitart 1 tab ONCE ONCE PO 06/10/20 03:00 06/10/20 03:01 DC 06/10/20 02:53 1 TAB Prednisone 50 mg ONCE ONCE PO 06/10/20 03:00 06/10/20 03:01 DC 06/10/20 02:53 50 MG Vital Signs/I&O 06/10/20 02:25 Temp 36.5 Pulse 69 Resp 17 B/P (MAP) 143/65 (91) O2 Delivery Room Air Capillary Refill : Less Than 3 Seconds Blood Pressure Mean: 91 Departure Communication (Admissions) History of recurrent headaches waiting outpatient work-up for optic neuritis/multiple sclerosis. No focal neurologic deficits in the ED. Symptoms improved with treatment. We will continue supportive care with PCP/neurology follow-up [facility]. All questions answered to the patient's satisfaction prior to departure. Impression Primary Impression: Ocular headache Disposition: HOME, SELF-CARE Condition: Stable Departure-Patient Inst. Decision time for Depature: 02:50 Referrals: [place] NUR MD (Family) Primary Care Physician Patient Instructions: Headache, Adult Add. Discharge Instructions: Please take medications as directed and follow-up with your local PCP and/or neurologist [facility]. All discharge instructions reviewed with patient and/or family. Voiced understanding. Scripts Prednisone (Prednisone) 20 Mg Tab 40 MG PO DAILY, #6 TAB 0 Refills Prov: MARICRUZ ALMARAZ DO 06/10/20 Hydrocodone/Acetaminophen (Hydrocodone-Acetamin 5-325 mg) 1 Each Tablet 1 TAB PO Q4H PRN for PAIN-MODERATE (5-7), #5 TAB Prov: MARICRUZ ALMARAZ DO 06/10/20 Prochlorperazine Maleate (Compazine) 10 Mg Tablet 10 MG PO Q8H, #10 TAB 0 Refills Prov: MARICRUZ ALMARAZ DO 06/10/20 MARICRUZ ALMARAZ DO Jun 10, 2020 02:52
[2020-06-10] MEDS ORDERED: HYDROcodone/APAP 5 MG/325 MG (LORTAB) TAB PO ONE (03:00)
[2020-06-10] MEDS ORDERED: predniSONE 20 MG TAB PO ONE (03:00)
== END 2020-06-10 03:07 | disposition home or self-care (01) ==
LOC: EDUNIT# 02:17 → ER FS 02:21
DX: R51.9 Headache, unspecified (principal); J45.909 Unspecified asthma, uncomplicated; F41.9 Anxiety disorder, unspecified; Z88.5 Allergy status to narcotic agent; Z88.1 Allergy status to other antibiotic agents; Z79.52 Long term (current) use of systemic steroids
CPT/HCPCS: 99283